=== PATIENT | male | born 1955 | race Caucasian/White ===

== ENCOUNTER 2018-01-24 10:52 | Observation (INO) | END 2018-01-25 15:35 | disposition home or self-care (01) ==

== ENCOUNTER 2019-02-18 06:48 | Day surgery (SDC) | payer MEDICARE, OTHER ==
[2019-02-17 17:47] VITALS: BMI 26.7
[~2019-02-18] VITALS: Ht 170.2 cm; Wt 78.7 kg
[2019-02-18] VITALS (18 sets, daily range): BP systolic 90–138; BP diastolic 58–92; PULSE 56–74; RESP 15–22; Ht 170.2 cm; Wt 78.7 kg
[~2019-02-18 06:48] MED LIST: ALBU90AE INHALATION; ASPI-817 PO; BACL10TA PO; CHOL200056 PO; CLOP75TA19 PO; DIAZEPAM 5 MG TAB PO SCH; DIPHENHYDRAMINE 25 MG CAP PO SCH; EZET10TA31 PO; FAMOTIDINE 20 MG TAB PO SCH; FINA5TAB4 PO; GABA400C14 PO; ISOS120T15 PO; LORA10TA3 PO; MECL-77 PO; MIRT15TA5 PO; PANT20TA3 PO; RANO10002 PO; ROSU40TA35 PO; TAMS0.4C2 PO
[2019-02-18] MEDS ORDERED: CYAN100080 PO (08:12)
[2019-02-18] MEDS ORDERED: METO-319 PO (08:18)
[2019-02-18] MEDS ORDERED: ERGO500013 PO (08:18)
[2019-02-18] MEDS ORDERED: NITR0.4T39 SL (08:20)
[2019-02-18] MEDS ORDERED: HEPARIN 1000 UNITS/ML 10 ML INJ ONE (08:59)
[2019-02-18] MEDS ORDERED: LIDOCAINE 1% (MDV) 20 ML INJ ONE (08:59)
[2019-02-18] MEDS ORDERED: IODIXANOL LOCM 100 ML BTL ONE ×2 (08:59→10:24)
[2019-02-18] MEDS ORDERED: VERAPAMIL 5 MG INJ ONE (08:59)
[2019-02-18] MEDS ORDERED: NITROGLYCERIN (IC) 100 MCG/ML INJ ONE (08:59)
[2019-02-18] MEDS ORDERED: FENTAnyl 50 MCG/ML VIAL ONE (09:48)
[2019-02-18] MEDS ORDERED: MIDAZOLAM 1 MG/ML 2 ML INJ ONE (09:48)
[2019-02-18] MEDS ORDERED: SOD CHLORIDE 0.9% 1,000 ML IV SCH (10:06)
--- NOTE | 2019-02-18 10:06 | SIPON ---
Date/Time of Note Date/Time of Note DATE: 02/18/19 TIME: 10:04 Operative Report Preoperative Diagnosis 1.abnl mpi Postoperative Diagnosis 1.Widely patent LAD/LCX/RCA stents Operation/Procedure Performed 1.[facility] Surgeon see signature line content assistant 1.Regino Anesthesia: moderate sedation Estimated blood loss: minimal Transfusion Required none Specimen none Grafts/Implants none Complications none TRUDI WOMACK Feb 18, 2019 10:06
[2019-02-18] MEDS ORDERED: ACETAMINOPHEN 325 MG TAB PO PRN (10:30)
[2019-02-18] MEDS ORDERED: morphine 2 MG INJ IV PRN (10:30)
[2019-02-18] MEDS ORDERED: AL HYDROX/MG HYDROX/SIMETH 30 ML CUP PO PRN (10:30)
[2019-02-18] MEDS ORDERED: ONDANSETRON 4 MG INJ IV PRN (10:30)
--- NOTE | 2019-02-18 13:03 | RADRPT ---
Vent Rate: 60 bpm RR Interval: 996 msec ID Interval: 176 msec QRS Duration: 97 msec QT Interval: 461 msec QTC Interval: 462 msec P-R-T [place]: 38 - 33 - 56 degrees Sinus rhythm...normal P axis, V-rate 50- 99 Low voltage, precordial leads...precordial leads <1.0mV Electronically Signed By: Kilo Trujillo
--- NOTE | 2019-02-18 13:54 | CARRPT ---
DATE OF PROCEDURE: 02/18/2019 TYPE OF PROCEDURES: 1. Left heart catheterization. 2. Coronary angiography. 3. Moderate conscious sedation. ATTENDING PHYSICIAN: Trudi Brennan MD REFERRING PHYSICIAN: Negra Gaming MD INDICATION: Positive stress test findings in preoperative evaluation. TYPE OF ANESTHESIA: Conscious local. BRIEF HISTORY: Mr. Cristina is a 64-year-old male with a history of hypertension, dyslipidemia, coron genia artery disease, status post prior PTCA and stent placement, most recently to LAD in 01/2018, who presented for preoperative evaluation and underwent cardiac stress test revealing positive ischemia, then was referred to cardiac catheterization lab in order to assess for possibility of significant ob structive coronary artery disease lending to positive stress test findings in a preoperative evaluati on. DESCRIPTION OF PROCEDURE: After informed consent was obtained, the patient was brought to the [facility] cardiac catheterization lab where his right radial area was prepped and draped in usual sterile fashion. A 2% lidocaine was infiltrated into the right radial area in order to ach ieve adequate anesthesia. Using the modified Seldinger technique, the right radial artery was cannul ated and a 6-Kosovan arterial sheath was placed. A 6-Kosovan JL3.5 catheter was used to cannulate the left main coronary ostium. With contrast injection, multiple views of the left coronary arterial sys tem were obtained. JL3.5 was removed over a guidewire and a JR4 was used to cannulate the right braden nary arterial ostium. With contrast injection, multiple views of the right coronary arterial system were obtained. JR4 was removed over a guidewire. A 6-Kosovan pigtail was passed down aorta into the LV. LVEDP was measured. A 20 mL of contrast was injected by power injector and pulled back across t he aortic valve to assess for significant gradient, which there was not and removed. Subsequently, t his completed the procedure. The patient's sheath was removed. TR band was applied. There were no complications. FINDINGS: Coronary angiography: Left main is 4 mm, no significant focal stenoses. Circumflex proxi pipo is a 3.5 mm vessel, has mild luminal irregularities up to approximately 30% in its proximal por tion and in its mid distal portion where the aorta bifurcates into a sizable obtuse marginal. There is a widely patent stent with no significant in-stent restenosis. Circumflex continuation AV groove is small vessel, free of significant focal stenosis. LAD proximally is a 3.5 mm vessel and in its pr oximal portion has a stent which is widely patent, no significant in-stent restenosis, just bifurcati on of diagonal and the remainder of LAD. lThe LAD thereafter is smaller caliber vessel and has a nakul nosis approximately 30%. Remainder of LAD thereafter is free from significant focal stenoses. Diago nal itself is 2 mm vessel, no significant focal stenoses. The right coronary artery proximally is a 3.5 mm vessel and in its proximal portion has a long stented portion zone which is widely patent with no significant in-stent restenosis. Thereafter that, right coronary artery is free from significant focal stenoses. It is a dominant vessel and therefore gives off 3 mm to the posterolateral branch e ach with no significant focal stenoses. Left ventriculogram revealed left ventricular ejection fraction of approximately 50% to 55%. Left ve ntricular end diastolic pressure of 17 pre-LV gram, 20 post-LV gram. A 1+ mitral regurgitation. No significant aortic stenosis by gradient. TOTAL FLUOROSCOPY TIME: 2.6 minutes. TOTAL CONTRAST: 65 mL. IMPRESSION: 1. Widely patent left anterior descending, circumflex shortly and right coronary artery stents. 2. High normal left heart filling pressures. 3. A 1+ mitral regurgitation. 4. No significant aortic stenosis by gradient. RECOMMENDATIONS: In light of procedure findings at this time, we would: 1. Maximize medical management. 2. Aggressive risk factor reduction. 3. The patient will be readmitted to the same day surgery center for post-cath observation and mary nued management of symptoms with probable discharge later this afternoon. Dictated By: TRUDI SPEARS/FELIPE Conf#: [id number] DID#: [id number] CC: NEGRA GAMING MD;*EndCC*
== END 2019-02-18 14:05 | disposition home or self-care (01) ==
LOC: CCL 06:48 → SDS 06:48 → CCL 14:05
PROVIDERS: ATTEND Internal Medicine
DX: I25.10 Atherosclerotic heart disease of native coronary artery without angina pectoris (principal); I34.0 Nonrheumatic mitral (valve) insufficiency; I10 Essential (primary) hypertension; E78.5 Hyperlipidemia, unspecified; Z98.61 Coronary angioplasty status
CPT/HCPCS: 71045; 80048; 80061; 85025; 85610; 85730; 93005; 93458; C1887; J1644; J2250; J3010; Q9967